=== PATIENT | male | born 1945 | race Caucasian/White ===

== ENCOUNTER → 2018-10-07 | Outpatient (CLI) | payer MEDICARE, OTHER ==
--- NOTE | 2018-10-07 09:22 | Diagnostic Imaging Report ---
PROCEDURE: Frontal and lateral views of the chest. COMPARISON: None. INDICATIONS: CHRONIC COUGH FINDINGS: Lines/tubes: None. Lungs: The lungs are well inflated and clear. There is no evidence of pneumonia or pulmonary edema. Pleura: There is no pleural effusion or pneumothorax. Heart and mediastinum: The heart and the mediastinum are normal. Bones: No acute bony abnormality. IMPRESSION: No acute radiographic abnormality. Dictated by: NOEMÍ DEAN M.D. on 10/07/2018 at 9:33 Electronically approved by: NOEMÍ DEAN M.D. on 10/07/2018 at 9:33
== END ==
LOC: RAD 08:18
PROVIDERS: ATTEND Family Medicine
DX: R05 Cough (principal)
CPT/HCPCS: 71046